=== PATIENT | female | born 1995 | race American Indian/Alaskan Native ===

== ENCOUNTER 2019-03-12 15:20 | Emergency (ER) | payer MEDICAID ==
--- NOTE | 2019-03-12 16:41 | Event Note ---
ED Screening Note Date of service: 03/12/19 Time: 16:39 ED Screening Note: 23 y o female cc of right sided low back/flank pain x 3 days also urinary frequency denies injury, trauma,fall This initial assessment/diagnostic orders/clinical plan/treatment(s) is/are subject to change based on patients health status, clinical progression and re- assessment by fellow clinical providers in the ED. Further treatment and workup at subsequent clinical providers discretion. Patient/guardian urged not to elope from the ED as their condition may be serious if not clinically assessed and managed. Initial orders include: ua,upt
[2019-03-12 17:17] LABS: Bilirubin,Urine NEG (Negative); Blood,Urine NEG (Negative); Color,Urine Yellow (Yellow); Mucus,Urine 2+ /HPF; Protein,Urine <15 mg/dL mg/dL (Negative); Urobilinogen,Urine < 2.0 mg/dL (<2.0)
[2019-03-12 17:19] LABS: HCG Qualitative,Urine Negative (Negative)
[2019-03-12 19:56] VITALS: BP 110/60
--- NOTE | 2019-03-12 19:56 | Emergency Department Report ---
ED Abdominal Pain HPI - General Chief Complaint: Back Pain/Injury Stated Complaint: BACK SIMS,LOWER ABD PAIN Time Seen by Provider: 03/12/19 18:53 Source: patient Mode of arrival: Ambulatory Limitations: No Limitations - History of Present Illness Initial Comments: As above 23 y o female cc of right sided low back/flank pain x 3 days also urinary frequency no hematuria, no vaginal bleeding or discharge. pt denies injury, trauma,or fall MD Complaint: flank pain Onset/Timin -: days(s) Location: R flank Radiation: suprapubic Migration to: suprapubic Severity: moderate Severity scale (0 -10): 3 Quality: aching Improves With: nothing Worsens With: nothing Associated Symptoms: denies: nausea, vomiting, diarrhea, fever, chills, constipation, dysuria, melena, hematuria - Related Data LMP (females 10-50): last week Previous Rx's Medication Instructions Recorded Last Taken Type Amoxicillin 500 mg PO BID #14 capsule 02/13/18 Unknown Rx HYDROcodone/APAP 5-325 [[place] 1 - 2 each PO Q6HR PRN #14 tablet 02/13/18 Unknown Rx 5/325] Ibuprofen [Motrin 800 MG tab] 800 mg PO Q8HR PRN #20 tablet 02/13/18 Unknown Rx Naproxen 500 mg PO BID PRN #30 tablet 03/12/19 Unknown Rx Nitrofurantoin [place]/M-Cryst 100 mg PO Q12HR 7 Days #14 capsule 03/12/19 Unknown Rx [Macrobid CAP] Allergies Allergy/AdvReac Type Severity Reaction Status Date / Time No Known Allergies Allergy Unverified 02/13/18 16:39 ED Review of Systems ROS: Stated complaint: BACK SIMS,LOWER ABD PAIN Other details as noted in HPI Constitutional: denies: chills, fever Eyes: denies: eye pain, eye discharge, vision change ENT: denies: ear pain, throat pain Respiratory: denies: cough, shortness of breath, wheezing Cardiovascular: denies: chest pain, palpitations Endocrine: no symptoms reported Gastrointestinal: denies: abdominal pain, nausea, diarrhea Genitourinary: frequency. denies: urgency, dysuria, hematuria, discharge, dyspareunia Musculoskeletal: back pain (right flank pain ). denies: joint swelling, arthralgia Skin: denies: rash, lesions Neurological: denies: headache, weakness, paresthesias Psychiatric: denies: anxiety, depression Hematological/Lymphatic: denies: easy bleeding, easy bruising ED Past Medical Hx - Past Medical History Previous Medical History?: No - Surgical History Past Surgical History?: Yes Additional Surgical History: 2014 - Social History Smoking Status: Current Every Day Smoker Substance Use Type: None - Medications Home Medications: Home Medications Medication Instructions Recorded Confirmed Last Taken Type Amoxicillin 500 mg PO BID #14 capsule 02/13/18 Unknown Rx HYDROcodone/APAP 5-325 [[place] 1 - 2 each PO Q6HR PRN #14 tablet 02/13/18 Unknown Rx 5/325] Ibuprofen [Motrin 800 MG tab] 800 mg PO Q8HR PRN #20 tablet 02/13/18 Unknown Rx Naproxen 500 mg PO BID PRN #30 tablet 03/12/19 Unknown Rx Nitrofurantoin [place]/M-Cryst 100 mg PO Q12HR 7 Days #14 capsule 03/12/19 Unknown Rx [Macrobid CAP] ED Physical Exam - General Limitations: No Limitations General appearance: alert, in no apparent distress - Head Head exam: Present: atraumatic, normocephalic - Eye Eye exam: Present: normal appearance, PERRL, EOMI Pupils: Present: normal accommodation - ENT ENT exam: Present: mucous membranes moist - Neck Neck exam: Present: normal inspection - Respiratory Respiratory exam: Present: normal lung sounds bilaterally. Absent: respiratory distress, wheezes, stridor, chest wall tenderness - Cardiovascular Cardiovascular Exam: Present: regular rate, normal rhythm, normal heart sounds. Absent: systolic murmur, diastolic murmur, rubs, gallop - GI/Abdominal GI/Abdominal exam: Present: soft, normal bowel sounds. Absent: distended, tenderness, guarding, rebound, rigid, bruit, hernia - Rectal Rectal exam: Present: deferred - External exam: Present: normal external exam - Extremities Exam Extremities exam: Present: normal inspection, full ROM, normal capillary refill. Absent: tenderness, calf tenderness - Back Exam Back exam: Present: normal inspection - Neurological Exam Neurological exam: Present: alert, oriented X3, CN II-XII intact, normal gait, reflexes normal. Absent: motor sensory deficit - Psychiatric Psychiatric exam: Present: normal affect, normal mood - Skin Skin exam: Present: warm, dry, intact, normal color. Absent: rash ED Course Vital Signs 03/12/19 15:30 Temperature 97.5 F L Pulse Rate 77 Respiratory 16 Rate Blood Pressure 107/63 O2 Sat by Pulse 98 Oximetry ED Medical Decision Making - Lab Data Labs 03/12/19 17:00 Urine Color Yellow Urine Turbidity Cloudy Urine pH 6.0 Ur Specific [place] 1.019 Urine Protein <15 mg/dl Urine Glucose (UA) Neg Urine Ketones Neg Urine Blood Neg Urine Nitrite Neg Urine Bilirubin Neg Urine Urobilinogen < 2.0 Ur Leukocyte Esterase Tr Urine WBC (Auto) 5.0 Urine RBC (Auto) 5.0 U Epithel Cells (Auto) 28.0 H Urine Mucus 2+ Urine HCG, Qual Negative - Medical Decision Making This young man complains of urinary frequency no hematuria no vaginal discharge no vaginal bleeding, there is no fever no chills no nausea vomiting. Patient has no history of renal stones there is no urinary hesitancy, there is no pain to palpation of flank area patient declines further workup or CT scan and rule out stone, however she is likely enteritis is not likely renal stone UA noted for leukocytes trace bacteria and blood however noted epithelial cells will however treat with Macrobid NSAIDs follow up with PCP in 2-3 days. Critical care attestation.: If time is entered above; I have spent that time in minutes in the direct care of this critically ill patient, excluding procedure time. ED Disposition Clinical Impression: Urinary frequency UTI (urinary tract infection) Qualifiers: Urinary tract infection type: acute cystitis Hematuria presence: without hematuria Qualified Code(s): N30.00 - Acute cystitis without hematuria Disposition: TO HOME OR SELFCARE Is pt being admited?: No Does the pt Need Aspirin: No Condition: Stable Instructions: Dysuria (ED) Prescriptions: Nitrofurantoin [place]/M-Cryst [Macrobid CAP] 100 mg PO Q12HR 7 Days #14 capsule Naproxen 500 mg PO BID PRN #30 tablet PRN Reason: Pain , Severe (7-10) Referrals: [facility] [Outside] - 3-5 Days Forms: Work/School Release Form(ED) Time of Disposition: 20:08
== END 2019-03-12 20:37 | disposition home or self-care (01) ==
LOC: ED 15:20
DX: N39.0 Urinary tract infection, site not specified (principal); F17.200 Nicotine dependence, unspecified, uncomplicated; Z98.890 Other specified postprocedural states; Z79.1 Long term (current) use of non-steroidal anti-inflammatories (NSAID); Z79.2 Long term (current) use of antibiotics; Z79.899 Other long term (current) drug therapy
CPT/HCPCS: 81001; 81025

== ENCOUNTER 2019-06-02 18:04 | Emergency (ER) | payer MEDICAID ==
[2019-06-02 21:39] VITALS: BP 99/61
== END 2019-06-02 21:00 | disposition left against medical advice (07) ==
LOC: ED 18:04
DX: M54.9 Dorsalgia, unspecified (principal); Z53.21 Procedure and treatment not carried out due to patient leaving prior to being seen by health care provider; V49.59XA Passenger injured in collision with other motor vehicles in traffic accident, initial encounter; Y93.89 Activity, other specified; Y92.89 Other specified places as the place of occurrence of the external cause; Y99.8 Other external cause status

== ENCOUNTER 2019-11-08 10:03 | Emergency (ER) | payer MEDICAID ==
[2019-11-08 10:10] VITALS: BP 109/69
[2019-11-08] MEDS ORDERED: SODIUM CHLORIDE 0.9% 1000 ML 1,000 ML IV ONE ×2 (12:07→14:14)
--- NOTE | 2019-11-08 12:12 | Emergency Department Report ---
ED HPI - General Chief complaint: Back Pain/Injury Stated complaint: LOWER BACK PAIN/V/UTI Time Seen by Provider: 11/08/19 11:19 Source: patient Mode of arrival: Ambulatory Limitations: No Limitations - History of Present Illness Initial comments: This is a 23-year-old female G2, P1 who presents at approximately 21 weeks gestation complaining of dysuria and flank pain x2 days ago. Patient [facility] was told she had a UTI after urinalysis but was not treated. Patient states that she was told by the [facility] to come back to the ED for evaluation and treatment but because it was so late patient went ahead and went home. She returns here today with the same symptoms as yesterday. Patient states she feels a little dizzy but denies fever/chest pain - Related Data Previous Rx's Medication Instructions Recorded Last Taken Type Amoxicillin 500 mg PO BID #14 capsule 02/13/18 Unknown Rx HYDROcodone/APAP 5-325 [[place] 1 - 2 each PO Q6HR PRN #14 tablet 02/13/18 Unknown Rx 5/325] Ibuprofen [Motrin 800 MG tab] 800 mg PO Q8HR PRN #20 tablet 02/13/18 Unknown Rx Naproxen 500 mg PO BID PRN #30 tablet 03/12/19 Unknown Rx Nitrofurantoin [place]/M-Cryst 100 mg PO Q12HR 7 Days #14 capsule 03/12/19 Unknown Rx [Macrobid CAP] Allergies Allergy/AdvReac Type Severity Reaction Status Date / Time No Known Allergies Allergy Unverified 02/13/18 16:39 ED Review of Systems ROS: Stated complaint: LOWER BACK PAIN/V/UTI Other details as noted in HPI Comment: All other systems reviewed and negative ED Past Medical Hx - Past Medical History Hx Hypertension: No Hx Diabetes: No Hx Deep Vein Thrombosis: No Hx Renal Disease: No Hx Sickle Cell Disease: No Hx Seizures: No Hx Asthma: No - Surgical History Additional Surgical History: 2015 - Social History Smoking Status: Former Smoker - Medications Home Medications: Home Medications Medication Instructions Recorded Confirmed Last Taken Type Amoxicillin 500 mg PO BID #14 capsule 02/13/18 Unknown Rx HYDROcodone/APAP 5-325 [[place] 1 - 2 each PO Q6HR PRN #14 tablet 02/13/18 Unknown Rx 5/325] Ibuprofen [Motrin 800 MG tab] 800 mg PO Q8HR PRN #20 tablet 02/13/18 Unknown Rx Naproxen 500 mg PO BID PRN #30 tablet 03/12/19 Unknown Rx Nitrofurantoin [place]/M-Cryst 100 mg PO Q12HR 7 Days #14 capsule 03/12/19 Unknown Rx [Macrobid CAP] ED Physical Exam - General Limitations: No Limitations General appearance: alert, in no apparent distress - Head Head exam: Present: atraumatic, normocephalic - Eye Eye exam: Present: normal appearance - ENT ENT exam: Present: mucous membranes moist - Neck Neck exam: Present: normal inspection - Respiratory Respiratory exam: Present: normal lung sounds bilaterally. Absent: respiratory distress - Cardiovascular Cardiovascular Exam: Present: regular rate, normal rhythm. Absent: systolic murmur, diastolic murmur, rubs, gallop - GI/Abdominal GI/Abdominal exam: Present: soft, normal bowel sounds, other (Gravid, uterus palpated at umbilicus). Absent: distended, tenderness, guarding, rebound - Extremities Exam Extremities exam: Present: normal inspection - Back Exam Back exam: Present: normal inspection - Neurological Exam Neurological exam: Present: alert, oriented X3 - Psychiatric Psychiatric exam: Present: normal affect, normal mood - Skin Skin exam: Present: warm, dry, intact, normal color. Absent: rash ED Course Vital Signs 11/08/19 10:08 Temperature 98.6 F Pulse Rate 137 H Respiratory 18 Rate Blood Pressure 109/69 O2 Sat by Pulse 97 Oximetry ED Medical Decision Making - Lab Data Result diagrams: 11/08/19 12:58 11/08/19 12:54 Laboratory Last Values WBC 15.7 K/mm3 (4.5-11.0) H 11/08/19 12:58 RBC 3.53 M/mm3 (3.65-5.03) L 11/08/19 12:58 Hgb 11.1 gm/dl (10.1-14.3) 11/08/19 12:58 Hct 33.4 % (30.3-42.9) 11/08/19 12:58 MCV 95 fl (79-97) 11/08/19 12:58 MCH 31 pg (28-32) 11/08/19 12:58 MCHC 33 % (30-34) 11/08/19 12:58 RDW 13.2 % (13.2-15.2) 11/08/19 12:58 Plt Count 249 K/mm3 (140-440) 11/08/19 12:58 Lymph % (Auto) 7.6 % (13.4-35.0) L 11/08/19 12:58 Cecil % (Auto) 6.6 % (0.0-7.3) 11/08/19 12:58 Eos % (Auto) 0.1 % (0.0-4.3) 11/08/19 12:58 Baso % (Auto) 0.3 % (0.0-1.8) 11/08/19 12:58 Lymph # 1.2 K/mm3 (1.2-5.4) 11/08/19 12:58 Cecil # 1.0 K/mm3 (0.0-0.8) H 11/08/19 12:58 Eos # 0.0 K/mm3 (0.0-0.4) 11/08/19 12:58 Baso # 0.0 K/mm3 (0.0-0.1) 11/08/19 12:58 Seg Neutrophils % 85.4 % (40.0-70.0) H 11/08/19 12:58 Seg Neutrophils # 13.4 K/mm3 (1.8-7.7) H 11/08/19 12:58 Sodium 135 mmol/L (137-145) L 11/08/19 12:54 Potassium 3.2 mmol/L (3.6-5.0) L 11/08/19 12:54 Chloride 100.8 mmol/L (98-107) 11/08/19 12:54 Carbon Dioxide 21 mmol/L (22-30) L 11/08/19 12:54 Anion Gap 16 mmol/L 11/08/19 12:54 BUN 5 mg/dL (7-17) L 11/08/19 12:54 Creatinine 0.4 mg/dL (0.6-1.2) L 11/08/19 12:54 Estimated GFR > 60 ml/min 11/08/19 12:54 BUN/Creatinine Ratio 13 % 11/08/19 12:54 Glucose 105 mg/dL (65-100) H 11/08/19 12:54 Calcium 9.0 mg/dL (8.4-10.2) 11/08/19 12:54 Total Bilirubin 0.40 mg/dL (0.1-1.2) 11/08/19 12:54 AST 11 units/L (5-40) 11/08/19 12:54 ALT 8 units/L (7-56) 11/08/19 12:54 Alkaline Phosphatase 51 units/L (35-129) 11/08/19 12:54 Total Protein 6.2 g/dL (6.3-8.2) L 11/08/19 12:54 Albumin 3.3 g/dL (3.9-5) L 11/08/19 12:54 Albumin/Globulin Ratio 1.1 % 11/08/19 12:54 Urine Color Yellow (Yellow) 11/08/19 13:30 Urine Turbidity Cloudy (Clear) 11/08/19 13:30 Urine pH 6.0 (5.0-7.0) 11/08/19 13:30 Ur Specific [place] 1.016 (1.003-1.030) 11/08/19 13:30 Urine Protein 30 mg/dl mg/dL (Negative) 11/08/19 13:30 Urine Glucose (UA) 150 mg/dL (Negative) 11/08/19 13:30 Urine Ketones 80 mg/dL (Negative) 11/08/19 13:30 Urine Blood Sm (Negative) 11/08/19 13:30 Urine Nitrite Neg (Negative) 11/08/19 13:30 Urine Bilirubin Neg (Negative) 11/08/19 13:30 Urine Urobilinogen < 2.0 mg/dL (<2.0) 11/08/19 13:30 Ur Leukocyte Esterase Lg (Negative) 11/08/19 13:30 Urine WBC (Auto) > 182.0 /HPF (0.0-6.0) H 11/08/19 13:30 Urine RBC (Auto) 6.0 /HPF (0.0-6.0) 11/08/19 13:30 U Epithel Cells (Auto) 1.0 /HPF (0-13.0) 11/08/19 13:30 Urine Bacteria (Auto) 4+ /HPF (Negative) 11/08/19 13:30 Urine Mucus 2+ /HPF 11/08/19 13:30 - Medical Decision Making This is a 23-year-old female at about 21 weeks gestation who presents to the ED with acute cystitis/acute pyelonephritis. Patient was tachycardic upon arrival so labs were ordered as well as urinalysis. IV fluids administered, patient's lab results shows leukocytosis, reduced electrolytes, urinalysis positive for bacteria white blood count suggestive of an acute cystitis. 2 L of IV fluids administered in total. Rocephin administered in the ED. Discussed with patient to follow-up with her NEMATOLOGIST within 3 days. Patient had no fever throughout ED stay. She reports feeling much better. - Differential Diagnosis Acute Pyelo, UTI, Critical care attestation.: If time is entered above; I have spent that time in minutes in the direct care of this critically ill patient, excluding procedure time. ED Disposition Clinical Impression: Acute pyelonephritis, Acute cystitis during Disposition: TO HOME OR SELFCARE Is pt being admited?: No Does the pt Need Aspirin: No Condition: Stable Instructions: Urinary Tract Infection in Women (ED), Acute Pyelonephritis (ED) Additional Instructions: Make sure to follow up with the primary care physician as discussed. Follow-up with NEMATOLOGIST as well. Make sure you are hydrating 8 to 10 glasses of water per day If you have any worsening symptoms or develop new symptoms please return to ED immediately. Referrals: PRIMARY CARE [Primary Care Provider] - 3-5 Days [facility] [Provider Group] - 3-5 Days [facility] [Provider Group] - 3-5 Days Forms: Work/School Release Form Time of Disposition: 16:26
[2019-11-08 13:48] LABS: Basophils % (Auto) 0.3 % (0.0-1.8); Eosinophils % (Auto) 0.1 % (0.0-4.3); Hematocrit 33.4 % (30.3-42.9); Hemoglobin 11.1 gm/dl (10.1-14.3); Lymphocytes # (Auto) 1.2 K/mm3 (1.2-5.4); Lymphocytes % (Auto) 7.6 % (13.4-35.0); Mean Corpuscular HGB Conc 33 % (30-34); Mean Corpuscular Volume 95 fl (79-97); Monocytes % (Auto) 6.6 % (0.0-7.3); Platelet Count 249 K/mm3 (140-440); Red Blood Count 3.53 M/mm3 (3.65-5.03); Red Cell Distribution Width 13.2 % (13.2-15.2)
[2019-11-08 14:13] LABS: Alanine Aminotransferase 8 units/L (7-56); Albumin 3.3 g/dL (3.9-5); Blood Urea Nitrogen 5 mg/dL (7-17); Hemolysis Index 6
[2019-11-08 14:14] LABS: BUN/Creatinine Ratio 13
[2019-11-08] MEDS ORDERED: cefTRIAXone/NS 1 GM/50 ML 1 GM/50 ML BAG IV ONE (14:14)
[2019-11-08 14:16] LABS: Bacteria,Urine 4+ /HPF (Negative); Bilirubin,Urine NEG (Negative); Blood,Urine SM (Negative); Color,Urine Yellow (Yellow); Mucus,Urine 2+ /HPF; Urobilinogen,Urine < 2.0 mg/dL (<2.0)
[2019-11-08 14:18] LABS: WBC,Urine > 182.0 /HPF (0.0-6.0)
[2019-11-08] MEDS ORDERED: METOCLOPRAMIDE 10 MG/2 ML INJ IV ONE (15:35)
== END 2019-11-08 17:17 | disposition home or self-care (01) ==
LOC: ED 10:03
DX: O23.12 Infections of bladder in pregnancy, second trimester (principal); O23.02 Infections of kidney in pregnancy, second trimester; Z3A.21 21 weeks gestation of pregnancy; Z98.890 Other specified postprocedural states; Z87.891 Personal history of nicotine dependence; Z79.1 Long term (current) use of non-steroidal anti-inflammatories (NSAID); Z79.2 Long term (current) use of antibiotics; Z79.899 Other long term (current) drug therapy
CPT/HCPCS: 36415; 59025; 80053; 81001; 85025; 96361; 96365; 96375; 99283; J0696; J2765; J7030

== ENCOUNTER 2019-12-06 17:15 | Outpatient (CLI) | payer MEDICAID ==
[2019-12-06 17:58] VITALS: BP 108/62
[2019-12-06] MEDS ORDERED: LACTATED RINGERS 1,000 ML IV SCH (18:00)
[2019-12-06 18:24] LABS: Bacteria,Urine 4+ /HPF (Negative); Bilirubin,Urine NEG (Negative); Blood,Urine SM (Negative); Color,Urine Yellow (Yellow); Mucus,Urine FEW /HPF; Urobilinogen,Urine < 2.0 mg/dL (<2.0); WBC,Urine > 182.0 /HPF (0.0-6.0)
[2019-12-06 18:28] LABS: Amphetamine Screen,Urine PRESUMPTIVE NEGATIVE; Benzodiazepines Screen,Urine PRESUMPTIVE NEGATIVE; Cannabinoid Screen,Urine PRESUMPTIVE POSITIVE; Cocaine Screen,Urine PRESUMPTIVE NEGATIVE; Methadone Screen,Urine PRESUMPTIVE NEGATIVE; Opiate Screen,Urine PRESUMPTIVE NEGATIVE
== END 2019-12-06 20:16 | disposition home or self-care (01) ==
LOC: EDSTATUS 17:26 → TRG 17:28 → APU 17:28 → TRG 20:16
PROVIDERS: ATTEND Obstetrics & Gynecology
DX: O26.892 Other specified pregnancy related conditions, second trimester (principal); M54.5 Low back pain; O47.02 False labor before 37 completed weeks of gestation, second trimester; Z87.891 Personal history of nicotine dependence; Z3A.25 25 weeks gestation of pregnancy
CPT/HCPCS: 59025; 80307; 81001; 96360; 96361; J7120

== ENCOUNTER 2020-05-29 11:14 | Emergency (ER) | payer MEDICAID ==
[2020-05-29 12:09] VITALS: BP 113/83
--- NOTE | 2020-05-29 12:51 | XRay Report ---
RIGHT WRIST 3 VIEWS INDICATION: right pain s/p fall. COMPARISON: None. IMPRESSION: Subtle nondisplaced fracture is suspected to the body of the scaphoid bone. The remainin g bony structures are intact. Mild diffuse soft tissue swelling is noted. No significant DJD. Signer Name: aDrio Oliveira Jr, MD Signed: 05/29/2020 12:47 PM Workstation Name: [id number]
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
== END 2020-05-29 13:31 | disposition home or self-care (01) ==
LOC: ED 11:14
DX: S62.001A Unspecified fracture of navicular [scaphoid] bone of right wrist, initial encounter for closed fracture (principal); J45.909 Unspecified asthma, uncomplicated; F17.200 Nicotine dependence, unspecified, uncomplicated; Z86.69 Personal history of other diseases of the nervous system and sense organs; Z79.899 Other long term (current) drug therapy; Z98.890 Other specified postprocedural states; W01.0XXA Fall on same level from slipping, tripping and stumbling without subsequent striking against object, initial encounter; Y93.89 Activity, other specified; Y92.009 Unspecified place in unspecified non-institutional (private) residence as the place of occurrence of the external cause; Y99.8 Other external cause status